=== PATIENT | female | born 1970 | race Caucasian/White ===

== ENCOUNTER 2018-01-21 08:39 | Emergency (ER) | payer BC, OTHER ==
[2018-01-21] MEDS ORDERED: SODIUM CHLORIDE 0.9% 1,000 ML IV ONE (09:02)
[2018-01-21 09:23] LABS: Anisocytosis Marked; Basophils # (A) 0.1 k/uL (0-0.2); Basophils % (A) 1 %; Eosinophils # (A) 0.2 k/uL (0-0.7); Eosinophils % (A) 2 %; HCT 24.1 % (34.0-46.0); Hypochromasia Marked; Lymphocytes # (A) 1.9 k/uL (1.0-4.8); Lymphocytes % (A) 20 %; MCH 18.6 pg (25.0-35.0); MCHC 26.8 g/dL (31.0-37.0); MCV 69.3 fL (80.0-100.0); Mean Platelet Volume 8.6; Microcytosis Marked; Monocytes # (A) 0.4 k/uL (0-1.0); Monocytes % (A) 4 %; Neutrophils # (A) 6.7 k/uL (1.3-7.7); Neutrophils % (A) 73 %; Platelet Count 230 k/uL (150-450); Poikilocytosis Moderate; RBC 3.48 m/uL (3.80-5.40); RDW 24.7 % (11.5-15.5); WBC 9.2 k/uL (3.8-10.6)
[2018-01-21 09:34] LABS: Anion Gap 13 mmol/L; Blood Urea Nitrogen 5 mg/dL (7-17); Calcium 8.9 mg/dL (8.4-10.2); Carbon Dioxide 24 mmol/L (22-30); Chloride 101 mmol/L (98-107); Glucose 97 mg/dL (74-99); Potassium 3.5 mmol/L (3.5-5.1); Sodium 138 mmol/L (137-145)
[2018-01-21 09:42] LABS: HGB 6.5 gm/dL (11.4-16.0)
[2018-01-21 10:01] LABS: Partial Thromboplastin Time 21.4 sec (22.0-30.0)
--- NOTE | 2018-01-21 10:28 | ED ---
Female Urogenital HPI - General Chief complaint: Vaginal Bleeding Stated complaint: Vaginal Bleeding-sent by Time Seen by Provider: 01/21/18 08:46 Source: patient, RN notes reviewed, old records reviewed Mode of arrival: ambulatory Limitations: no limitations - History of Present Illness Initial comments: 47-year-old female comes in today complaining of vaginal bleeding for the past week, she denies current bleeding. Was sent in by for a blood transfusion. Low hemoglobin of 6.4 yesterday. She did l receive a transfusion earlier this week when Hgb was 5.4. Patient reports she received TXA and 1 unit PRBC after passing large clots and the hgb of 5.4 at [facility] earlier in the week. She reports that her PCP rechecked her labs, and called her in for another transfusion. She reports feeling fatigue and short of breath occasionally. - Related Data Home Medications Medication Instructions Recorded Confirmed Ferrous Gluconate [Ferrous 324 mg PO Q48H 01/21/18 01/21/18 Gluconate] Omeprazole [PriLOSEC] 20 mg PO DAILY PRN 01/21/18 01/21/18 Allergies Allergy/AdvReac Type Severity Reaction Status Date / Time No Known Allergies Allergy Verified 01/21/18 09:13 Review of Systems ROS Statement: Those systems with pertinent positive or pertinent negative responses have been documented in the HPI. ROS Other: All systems not noted in ROS Statement are negative. Past Medical History Past Medical History: GERD/Reflux History of Any Multi-Drug Resistant Organisms: None Reported Past Surgical History: Tonsillectomy, Tubal Ligation Additional Past Surgical History / Comment(s): eye surgery, D&C Past Psychological History: No Psychological Hx Reported Smoking Status: Current every day smoker Past Alcohol Use History: Daily Past Drug Use History: None Reported General Exam - General Exam Comments Initial Comments: Pale, pleasant 47 year old female. no distress. Limitations: no limitations Head exam: Present: atraumatic Eye exam: Present: PERRL, EOMI, other (strabismus). Absent: normal appearance, scleral icterus, conjunctival injection, periorbital swelling ENT exam: Present: normal exam, mucous membranes moist Neck exam: Present: normal inspection. Absent: tenderness, meningismus, lymphadenopathy Respiratory exam: Present: normal lung sounds bilaterally. Absent: respiratory distress, wheezes, rales, rhonchi, stridor Cardiovascular Exam: Present: regular rate, normal rhythm, normal heart sounds. Absent: systolic murmur, diastolic murmur, rubs, gallop, clicks GI/Abdominal exam: Present: soft, normal bowel sounds. Absent: distended, tenderness, guarding, rebound, rigid Extremities exam: Present: normal inspection, full ROM, normal capillary refill. Absent: tenderness, pedal edema, joint swelling, calf tenderness Neurological exam: Present: alert, oriented X3, CN II-XII intact Psychiatric exam: Present: normal affect, normal mood Skin exam: Present: warm, dry, intact. Absent: normal color (pale), rash Course Vital Signs 01/21/18 01/21/18 01/21/18 08:42 11:43 11:46 Temperature 98.1 F 98.4 F 98.4 F Pulse Rate 78 78 78 Respiratory 20 18 20 Rate Blood Pressure 157/65 159/69 159/69 O2 Sat by Pulse 100 100 Oximetry 01/21/18 01/21/18 01/21/18 11:56 12:26 12:34 Temperature 98.4 F 98.4 F 98.4 F Pulse Rate 61 71 71 Respiratory 18 20 20 Rate Blood Pressure 152/58 150/64 150/64 O2 Sat by Pulse 99 99 Oximetry 01/21/18 13:47 Temperature 98.3 F Pulse Rate 68 Respiratory 20 Rate Blood Pressure 156/69 O2 Sat by Pulse 98 Oximetry - Reevaluation(s) Reevaluation #1: 01/21/18 12:05 Patient currently receiving transfusion. Medical Decision Making - Medical Decision Making 47-year-old female comes in today complaining of vaginal bleeding for the past week, she denies current bleeding. She did l receive a transfusion earlier this week when Hgb was 5.4. Patient reports she received TXA and 1 unit PRBC after passing large clots and the hgb of 5.4 at [facility] earlier in the week. She reports that her PCP rechecked her labs, and called her in for another transfusion. She reports occasional SOB, and fatigue. Hgb was 6.5 in ED. Given another unit of PRBC. Patient reports she feels better after receiving the blood. She also states that she has appt on Thursday with Dr. Kerr for bleeding, and PCP tomorrow. Discussed she needs to repeat CBC tmw. Patient and I discussed that without bleeding at this time, patient can hold off form hormones. Discussed if bleeding returns and is severe that they return to ED. She already had US at [facility], record reviewed and she has thickened endometrium. All questions answered and return parameters discussed. - Lab Data Result diagrams: 01/21/18 09:14 01/21/18 09:14 Lab Results 01/21/18 01/21/18 01/21/18 Range/Units 09:14 09:14 09:14 WBC 9.2 (3.8-10.6) k/uL RBC 3.48 L (3.80-5.40) m/uL Hgb 6.5 L* (11.4-16.0) gm/dL Hct 24.1 L (34.0-46.0) % MCV 69.3 L (80.0-100.0) fL MCH 18.6 L (25.0-35.0) pg MCHC 26.8 L (31.0-37.0) g/dL RDW 24.7 H (11.5-15.5) % Plt Count 230 (150-450) k/uL Neutrophils % 73 % Lymphocytes % 20 % Monocytes % 4 % Eosinophils % 2 % Basophils % 1 % Neutrophils # 6.7 (1.3-7.7) k/uL Lymphocytes # 1.9 (1.0-4.8) k/uL Monocytes # 0.4 (0-1.0) k/uL Eosinophils # 0.2 (0-0.7) k/uL Basophils # 0.1 (0-0.2) k/uL Hypochromasia Marked Poikilocytosis Moderate Anisocytosis Marked Microcytosis Marked PT 10.0 (9.0-12.0) sec INR 1.0 (<1.2) APTT 21.4 L (22.0-30.0) sec Sodium 138 (137-145) mmol/L Potassium 3.5 (3.5-5.1) mmol/L Chloride 101 (98-107) mmol/L Carbon Dioxide 24 (22-30) mmol/L Anion Gap 13 mmol/L BUN 5 L (7-17) mg/dL Creatinine 0.46 L (0.52-1.04) mg/dL Est GFR (CKD-EPI)AfAm >90 (>60 ml/min/1.73 sqM) Est GFR (CKD-EPI)NonAf >90 (>60 ml/min/1.73 sqM) Glucose 97 (74-99) mg/dL Calcium 8.9 (8.4-10.2) mg/dL Blood Type Blood Type Recheck Antibody Screen Crossmatch Spec Expiration Date 01/21/18 Range/Units 09:14 WBC (3.8-10.6) k/uL RBC (3.80-5.40) m/uL Hgb (11.4-16.0) gm/dL Hct (34.0-46.0) % MCV (80.0-100.0) fL MCH (25.0-35.0) pg MCHC (31.0-37.0) g/dL RDW (11.5-15.5) % Plt Count (150-450) k/uL Neutrophils % % Lymphocytes % % Monocytes % % Eosinophils % % Basophils % % Neutrophils # (1.3-7.7) k/uL Lymphocytes # (1.0-4.8) k/uL Monocytes # (0-1.0) k/uL Eosinophils # (0-0.7) k/uL Basophils # (0-0.2) k/uL Hypochromasia Poikilocytosis Anisocytosis Microcytosis PT (9.0-12.0) sec INR (<1.2) APTT (22.0-30.0) sec Sodium (137-145) mmol/L Potassium (3.5-5.1) mmol/L Chloride (98-107) mmol/L Carbon Dioxide (22-30) mmol/L Anion Gap mmol/L BUN (7-17) mg/dL Creatinine (0.52-1.04) mg/dL Est GFR (CKD-EPI)AfAm (>60 ml/min/1.73 sqM) Est GFR (CKD-EPI)NonAf (>60 ml/min/1.73 sqM) Glucose (74-99) mg/dL Calcium (8.4-10.2) mg/dL Blood Type O Positive Blood Type Recheck No Antibody Screen NEGATIVE Crossmatch See Detail Spec Expiration Date 01/24/2018 - 2314 Disposition Clinical Impression: Anemia, History of vaginal bleeding Disposition: HOME SELF-CARE Condition: Good Instructions: Anemia (ED) Additional Instructions: Patient advised to follow-up with primary care provider tomorrow repeat CBC. If there is heavy bleeding return to emergency department. Follow up with your EDGE BEADER on Thursday. Is patient prescribed a controlled substance at d/c from ED?: No If prescribed controlled substance>3 days was MAPS reviewed?: No When asked, does pt state using other controlled substances?: No Referrals: Quan Wu MD [Primary Care Provider] - 1-2 days
[2018-01-21 12:35] VITALS: RESP 20
[2018-01-21 13:48] VITALS: BP 156/69; PULSE 68; TEMP 98.3
== END 2018-01-21 14:09 | disposition home or self-care (01) ==
LOC: EC 08:39
DX: D64.9 Anemia, unspecified (principal); F17.200 Nicotine dependence, unspecified, uncomplicated; Z79.899 Other long term (current) drug therapy; Z87.42 Personal history of other diseases of the female genital tract
CPT/HCPCS: 36415; 86900; 86901; 80048; 85025; 85610; 85730; 86850; 86920; 99284; 96360; 96361 ×4; P9016

== ENCOUNTER 2018-01-28 09:11 | Emergency (ER) | payer BC, OTHER ==
--- NOTE | 2018-01-28 09:50 | ED ---
Recheck HPI - General Chief Complaint: Recheck/Abnormal Lab/Rx Stated Complaint: Needs blood transfusion Time Seen by Provider: 01/28/18 09:26 Source: patient, RN notes reviewed, old records reviewed Mode of arrival: ambulatory Limitations: no limitations - History of Present Illness Initial Comments: 47-year-old female with a history of heavy vaginal bleeding since January 17 presents to the emergency department today stating that she is a blood transfusion according to her PCP. She states that she had hemoglobin of 7.4 on Thursday when she was evaluated by PSYCH ASSISTANT. PSYCH ASSISTANT plans to do a D&C. She has had medical clearance by her primary care provider. The primary care provider will not approve for until she has a another blood transfusion. He would like her hemoglobin to be greater than 10. Patient has been to the emergency department 3 times for a blood transfusion including this time. Patient reports she feels tired and fatigued. Sometimes she is short of breath. She also states that yesterday when she saw her primary care provider the did an EKG and her having her sent for a stress test for further clearance. Patient reports that she's had no chest pain. Patient reports that she's had some minor spotting. No heavy vaginal bleeding and she had earlier this month. - Related Data Home Medications Medication Instructions Recorded Confirmed Ferrous Gluconate [Ferrous 324 mg PO DAILY 01/21/18 01/28/18 Gluconate] Omeprazole [PriLOSEC] 20 mg PO DAILY 01/21/18 01/28/18 amLODIPine [Norvasc] 5 mg PO DAILY 01/28/18 01/28/18 Allergies Allergy/AdvReac Type Severity Reaction Status Date / Time No Known Allergies Allergy Verified 01/28/18 09:40 Review of Systems ROS Statement: Those systems with pertinent positive or pertinent negative responses have been documented in the HPI. ROS Other: All systems not noted in ROS Statement are negative. Past Medical History Past Medical History: GERD/Reflux History of Any Multi-Drug Resistant Organisms: None Reported Past Surgical History: Tonsillectomy, Tubal Ligation Additional Past Surgical History / Comment(s): eye surgery, D&C Past Psychological History: No Psychological Hx Reported Smoking Status: Current every day smoker Past Alcohol Use History: Daily Past Drug Use History: None Reported General Exam - General Exam Comments Initial Comments: [id number] female. Alert and oriented. Pleasant. No acute distress. Limitations: no limitations General appearance: alert, in no apparent distress Head exam: Present: atraumatic, normocephalic, normal inspection Eye exam: Present: normal appearance, PERRL, EOMI. Absent: scleral icterus, conjunctival injection, periorbital swelling ENT exam: Present: normal exam, mucous membranes moist Neck exam: Present: normal inspection. Absent: tenderness, meningismus, lymphadenopathy Respiratory exam: Present: normal lung sounds bilaterally. Absent: respiratory distress, wheezes, rales, rhonchi, stridor Cardiovascular Exam: Present: regular rate GI/Abdominal exam: Present: soft, normal bowel sounds. Absent: distended, tenderness, guarding, rebound, rigid Extremities exam: Present: normal inspection, full ROM, normal capillary refill. Absent: tenderness, pedal edema, joint swelling, calf tenderness Back exam: Present: normal inspection Neurological exam: Present: alert, oriented X3, CN II-XII intact Course Vital Signs 01/28/18 01/28/18 01/28/18 09:18 12:19 13:33 Temperature 97.8 F 98.1 F Pulse Rate 77 61 60 Respiratory 20 17 17 Rate Blood Pressure 138/63 120/70 120/60 O2 Sat by Pulse 100 94 L 96 Oximetry 01/28/18 01/28/18 01/28/18 15:04 15:09 15:19 Temperature 967.0 F H 98.8 F 98.7 F Pulse Rate 68 59 L 57 L Respiratory 16 16 16 Rate Blood Pressure 133/61 121/72 142/66 O2 Sat by Pulse 99 100 Oximetry 01/28/18 01/28/18 15:49 17:08 Temperature 98.2 F 98.3 F Pulse Rate 57 L 62 Respiratory 17 17 Rate Blood Pressure 163/72 156/70 O2 Sat by Pulse 98 99 Oximetry - Reevaluation(s) Reevaluation #1: 01/28/18 11:34 Patient resting in bed. He complains of chest pain or any other symptoms. Waiting for transfusion. Reevaluation #2: 01/28/18 13:40 At this time patient's does receive blood. Currently pending for lab cross results. Medical Decision Making - Medical Decision Making 47-year-old female presents emergency department from her primary care's office for another blood transfusion. Hemoglobin is 8 this time. She will not be cleared for D&C surgery and she has another transfusion. I asked right she cannot use outpatient patient reports that her primary care provider Sharma come to the emergency department. At this time patient was given a transfusion. It took a long time as patient did have reactive antibodies and this blood draw. Patient received the transfusion. Stable for going home. Patient will follow up with her PCP and outpatient services that she has to to get further clearance for D&C. Patient reports she feels better after transfusion. - Lab Data Result diagrams: 01/28/18 09:58 Lab Results 01/28/18 01/28/18 01/28/18 Range/Units 09:58 09:58 09:58 WBC 8.9 (3.8-10.6) k/uL RBC 4.01 (3.80-5.40) m/uL Hgb 8.0 L D (11.4-16.0) gm/dL Hct 29.2 L (34.0-46.0) % MCV 72.8 L (80.0-100.0) fL MCH 19.9 L (25.0-35.0) pg MCHC 27.3 L (31.0-37.0) g/dL RDW 23.9 H (11.5-15.5) % Plt Count 377 (150-450) k/uL Neutrophils % (Manual) 77 % Lymphocytes % (Manual) 18 % Monocytes % (Manual) 4 % Eosinophils % (Manual) 1 % Neutrophils # (Manual) 6.85 (1.3-7.7) k/uL Lymphocytes # (Manual) 1.60 (1.0-4.8) k/uL Monocytes # (Manual) 0.36 (0-1.0) k/uL Eosinophils # (Manual) 0.09 (0-0.7) k/uL Nucleated RBCs 0 (0-0) /100 WBC Hypochromasia Marked Poikilocytosis Marked Anisocytosis Moderate Microcytosis Marked Target Cells Present Troponin I 0.013 (0.000-0.034) ng/mL Blood Type O Positive Blood Type Recheck No Antibody Screen POSITIVE Antibody Identification Clin Significant ABs Ruled Out Direct Antiglob Test Negative Crossmatch See Detail Spec Expiration Date 01/31/2018 - 0350 01/28/18 13:04 EKG performed at 1028 shows sinus rhythm with short DC. ST-T wave abnormality considering ischemia. Prolonged QT. Ventricular 65 bpm. DC interval is 102. QRS duration 106. QT QTc is 452/470. Disposition Clinical Impression: Anemia Disposition: HOME SELF-CARE Condition: Good Instructions: Anemia (ED) Additional Instructions: Patient advised follow-up with primary care provider and OBGYN in regards to completing clearance for D&C. Return to the emergency department if any alarming signs or symptoms occur. Is patient prescribed a controlled substance at d/c from ED?: No If prescribed controlled substance>3 days was MAPS reviewed?: No When asked, does pt state using other controlled substances?: No Referrals: Quan Wu MD [Primary Care Provider] - 1-2 days Time of Disposition: 16:25
[2018-01-28 10:23] LABS: Anisocytosis Moderate; HCT 29.2 % (34.0-46.0); Hypochromasia Marked; MCH 19.9 pg (25.0-35.0); MCHC 27.3 g/dL (31.0-37.0); MCV 72.8 fL (80.0-100.0); Microcytosis Marked; Platelet Count 377 k/uL (150-450); Poikilocytosis Marked; RBC 4.01 m/uL (3.80-5.40); RDW 23.9 % (11.5-15.5); WBC 8.9 k/uL (3.8-10.6)
[2018-01-28 10:48] LABS: Eosinophils # (M) 0.09 k/uL (0-0.7); Monocytes # (M) 0.36 k/uL (0-1.0); Neutrophils # (M) 6.85 k/uL (1.3-7.7); Neutrophils % (M) 77 %; Nucleated Red Blood Cells 0 /100 WBC (0-0); Target Cells Present; Total Cells Counted 100
[2018-01-28 16:01] VITALS: RESP 17
[2018-01-28 17:08] VITALS: BP 156/70; PULSE 62; TEMP 98.3
== END 2018-01-28 17:11 | disposition home or self-care (01) ==
LOC: EC 09:11
DX: D64.9 Anemia, unspecified (principal); R06.02 Shortness of breath; N93.9 Abnormal uterine and vaginal bleeding, unspecified; K21.9 Gastro-esophageal reflux disease without esophagitis; F17.200 Nicotine dependence, unspecified, uncomplicated; Z79.899 Other long term (current) drug therapy; Z98.51 Tubal ligation status
CPT/HCPCS: 36415; 93005; 86900; 86901; 84484; 85025; 86850; 86920; 86870; 86880; 99285; P9016

== ENCOUNTER → 2018-02-26 | Outpatient (CLI) | payer BC, OTHER ==
--- NOTE | 2018-02-26 18:21 | ECHOF ---
Referral Reason:R34.91 Abnormal EKG MEASUREMENTS -------- HEIGHT: 172.7 cm WEIGHT: 101.6 kg BP: 172/97 RVIDd: 3.8 cm (< 3.3) IVSd: 1.4 cm (0.6 - 1.1) LVIDd: 4.1 cm (3.9 - 5.3) LVPWd: 1.4 cm (0.6 - 1.1) IVSs: 1.8 cm LVIDs: 2.5 cm LVPWs: 1.6 cm LA Diam: 3.5 cm (2.7 - 3.8) LAESV Index (A-L): 24.62 ml/m Ao Diam: 3.2 cm (2.0 - 3.7) AV Cusp: 2.2 cm (1.5 - 2.6) MV EXCURSION: 17.354 mm (> 18.000) MV EF SLOPE: 75 mm/s (70 - 150) EPSS: 0.6 cm MV E Sree: 0.79 m/s MV DecT: 310 ms MV A Sree: 0.72 m/s MV E/A Ratio: 1.10 FINDINGS -------- Sinus rhythm. This was a technically good study. The left ventricular size is normal. There is moderate concentric left ventricular hypertrophy. O verall left ventricular systolic function is normal with, an EF between 55 - 60 %. The right ventricle is mild to moderately enlarged. Normal LA size by volume 22+/-6 ml/m2. The right atrium is normal in size. The aortic valve is trileaflet and appears structurally normal. There is trace to mild mitral regurgitation. The tricuspid valve appears structurally normal. There is no pulmonic regurgitation present. The aortic root size is normal. Normal inferior vena cava with normal inspiratory collapse consistent with estimated right atrial pre ssure of 5 mmHg. There is no pericardial effusion. CONCLUSIONS -------- 1. Sinus rhythm. 2. This was a technically good study. 3. The left ventricular size is normal. 4. There is moderate concentric left ventricular hypertrophy. 5. Overall left ventricular systolic function is normal with, an EF between 55 - 60 %. 6. The right ventricle is mild to moderately enlarged. 7. Normal LA size by volume 22+/-6 ml/m2. 8. The right atrium is normal in size. 9. The aortic valve is trileaflet and appears structurally normal. 10. There is trace to mild mitral regurgitation. 11. The tricuspid valve appears structurally normal. 12. There is no pulmonic regurgitation present. 13. The aortic root size is normal. 14. Normal inferior vena cava with normal inspiratory collapse consistent with estimated right atrial pressure of 5 mmHg. 15. There is no pericardial effusion. BRADLEY LINEBACKER CREWMEMBER: Petra Douglas RDCS
== END | disposition home or self-care (01) ==
LOC: RADNMMAIN 10:50
PROVIDERS: ATTEND Family Medicine
DX: I51.7 Cardiomegaly (principal); R94.31 Abnormal electrocardiogram [ECG] [EKG]
CPT/HCPCS: 93306

== ENCOUNTER → 2018-04-16 | Outpatient (CLI) | payer BC, OTHER ==
[2018-04-16 12:02] LABS: Anisocytosis Slight; Basophils # (A) 0.1 k/uL (0-0.2); Basophils % (A) 1 %; Eosinophils # (A) 0.1 k/uL (0-0.7); Eosinophils % (A) 1 %; HCT 36.5 % (34.0-46.0); HGB 10.8 gm/dL (11.4-16.0); Hypochromasia Marked; Lymphocytes # (A) 1.9 k/uL (1.0-4.8); Lymphocytes % (A) 20 %; MCH 22.8 pg (25.0-35.0); MCHC 29.6 g/dL (31.0-37.0); MCV 76.9 fL (80.0-100.0); Mean Platelet Volume 7.1; Microcytosis Slight; Monocytes # (A) 0.4 k/uL (0-1.0); Monocytes % (A) 4 %; Neutrophils # (A) 6.8 k/uL (1.3-7.7); Neutrophils % (A) 73 %; Platelet Count 339 k/uL (150-450); RBC 4.75 m/uL (3.80-5.40); RDW 17.8 % (11.5-15.5); WBC 9.4 k/uL (3.8-10.6)
== END | disposition home or self-care (01) ==
LOC: LABPAT 11:30
PROVIDERS: ATTEND Obstetrics & Gynecology
DX: Z01.812 Encounter for preprocedural laboratory examination (principal)
CPT/HCPCS: 36415; 85025

== ENCOUNTER 2018-04-27 06:05 | Day surgery (SDC) | payer BC, OTHER ==
[2018-04-19 12:55] VITALS: BMI 31.7
--- NOTE | 2018-04-26 18:52 | P.HPOB ---
History of Present Illness H&P Date: 04/26/18 Chief Complaint: Menorrhagia with regular cycle This is a 47-year-old female 1 para 1 who presents for dilation and curettage with hysteroscopy and NovaSure endometrial ablation secondary to menorrhagia with regular cycle. She has been having heavy menses with large clots and intermenstrual spotting for at least the last 6-7 months. Each time her bleeding will last 2-3 days. Her menses are lasting at least 5-6 days with heavy clots and some cramping. Occasionally she does get a period to where she bleeds through her clothes. Her bleeding was so heavy that she did end up in the emergency room and required 2 units of blood in January 2018. Her hemoglobin had gone down to 5.8 prior to the transfusion. She has had a tubal ligation for control. Her pelvic ultrasound showed a uterus measuring 9.5 x 5.1 x 5.9 cm and a 1.5 cm partially subserosal fibroid on the posterior uterine body. Endometrial thickness was 1.93 cm each ovary showed some dominant follicles there was also a complex cyst on the left ovary measuring 1.6 cm. Surgical clearance was received from her primary care physician Dr. Deras. Obstetrical history: . History of 1 vaginal delivery. Gynecologic history: No history of sexual transmitted diseases. She has had a tubal ligation. Social history: She is . She works as a teacher. Review of Systems Constitutional: Reports fatigue, Reports night sweats Eyes: denies blurred vision, denies pain Ears, nose, mouth and throat: Denies headache, Denies sore throat Cardiovascular: Reports palpitations Gastrointestinal: Denies abdominal pain, Denies diarrhea, Denies nausea, Denies vomiting Genitourinary: Reports dysmenorrhea, Reports menorrhagia Menstruation: Reports menses 1-7 days, Reports menses variable, Reports period heavy Musculoskeletal: Reports myalgias Integumentary: Denies pruritus, Denies rash Neurological: Denies numbness, Denies weakness Psychiatric: Reports anxiety, Reports irritability Past Medical History Past Medical History: GERD/Reflux, Hypertension Additional Past Medical History / Comment(s): HEAVY IRREGULAR MENSES-HAD BLOOD TRANSFUSION X3 (2) JANUARY- (1) FEBRUARY 2018 History of Any Multi-Drug Resistant Organisms: None Reported Past Surgical History: Tonsillectomy, Tubal Ligation Additional Past Surgical History / Comment(s): eye surgery CHILD, D&C Past Anesthesia/Blood Transfusion Reactions: Motion Sickness, Postoperative Nausea & Vomiting (PONV) Past Psychological History: Anxiety Smoking Status: Current every day smoker Past Alcohol Use History: Occasional Past Drug Use History: None Reported - Past Family History Mother Family Medical History: Cancer Medications and Allergies Home Medications Medication Instructions Recorded Confirmed Type Ferrous Gluconate 324 mg PO DAILY 01/21/18 04/19/18 History Omeprazole [PriLOSEC] 20 mg PO DAILY 01/21/18 04/19/18 History amLODIPine [Norvasc] 5 mg PO DAILY 01/28/18 04/19/18 History Allergies Allergy/AdvReac Type Severity Reaction Status Date / Time No Known Allergies Allergy Verified 04/19/18 12:49 Exam Osteopathic Statement: *. No significant issues noted on an osteopathic structural exam other than those noted in the History and Physical/Consult. HEENT: Within normal limits Heart: Regular rate and rhythm Lungs: Clear to auscultation bilaterally Abdomen: Soft, nontender Pelvic exam: Uterus is anteverted, nontender, with no adnexal masses or tenderness palpated. Extremities: Negative Homans. Assessment and Plan (1) Menorrhagia with regular cycle Status: Acute Code(s): N92.0 - EXCESSIVE AND FREQUENT MENSTRUATION WITH REGULAR CYCLE SNOMED Code(s): 232689040 Plan: Proceed with dilation and curettage with hysteroscopy and NovaSure endometrial ablation. I have discussed the risks, benefits, and alternative therapies for the above- mentioned procedure and for both sedation/anesthesia as well as necessary blood products administration, if indicated, as they pertain to this patient. The patient has indicated her understanding and acceptance of the risks and procedures discussed.
[~2018-04-27 06:05] MED LIST: DEXAMETHASONE SOD PHOSPHATE 10 MG/ML 1 ML VIAL IV ONE; LACTATED RINGERS 1,000 ML IV SCH; LIDOCAINE 1% 20 ML VIAL (10MG/ML) FOR IV START INTRADERMA PRN; MIDAZOLAM 2 MG/2 ML VIAL IV PRN; ONDANSETRON 4 MG/2 ML VIAL IVP ONE; Pre Op ABX Message 1 EACH MISC MISCELLANE ONE; fentaNYL (PF) 50 MCG/ML 2 ML AMP IV PRN
[2018-04-27] MEDS ORDERED: SCOPOLAMINE 1.5MG/72HR PATCH TRANSDERM ONE (07:09)
[2018-04-27] MEDS ORDERED: PROPOFOL 10 MG/ML 20 ML VIAL IV ONE (07:29)
[2018-04-27] MEDS ORDERED: fentaNYL (PF) 50 MCG/ML 2 ML AMP ONE (07:29)
[2018-04-27] MEDS ORDERED: MIDAZOLAM 2 MG/2 ML VIAL ONE (07:29)
[2018-04-27] MEDS ORDERED: diphenhydrAMINE 50 MG/ML 1 ML VIAL ONE (07:29)
[2018-04-27] MEDS ORDERED: KETOROLAC 30 MG/ML 1 ML VIAL ONE (07:29)
[2018-04-27] MEDS ORDERED: LIDOCAINE 1% INJ 10MG/ML (20 ML MDV) ONE (07:29)
--- NOTE | 2018-04-27 07:59 | P.OP ---
Date of Procedure: 04/27/18 Preoperative Diagnosis: Menorrhagia with regular cycle Postoperative Diagnosis: Same Procedure(s) Performed: Dilation and curettage with hysteroscopy and NovaSure endometrial ablation Anesthesia: other (LMA general) Surgeon: Kaylah Kerr Estimated Blood Loss (ml): 2 Pathology: other (Endometrial curettings) Condition: stable Disposition: same day Indications for Procedure: This is a 47-year-old female 1 para 1 who presents for dilation and curettage with hysteroscopy and NovaSure endometrial ablation secondary to menorrhagia with regular cycle. She has been having heavy menses with large clots and intermenstrual spotting for at least the last 6-7 months. Each time her bleeding will last 2-3 days. Her menses are lasting at least 5-6 days with heavy clots and some cramping. Occasionally she does get a period to where she bleeds through her clothes. Her bleeding was so heavy that she did end up in the emergency room and required 2 units of blood in January 2018. Her hemoglobin had gone down to 5.8 prior to the transfusion. She has had a tubal ligation for control. Her pelvic ultrasound showed a uterus measuring 9.5 x 5.1 x 5.9 cm and a 1.5 cm partially subserosal fibroid on the posterior uterine body. Endometrial thickness was 1.93 cm each ovary showed some dominant follicles there was also a complex cyst on the left ovary measuring 1.6 cm. Surgical clearance was received from her primary care physician Dr. Deras. Operative Findings: Uterus is anteverted and sounded to 11 cm. Cervix is sounded to 4 cm. Upon hysteroscopy, a very dyssynchronous thickened endometrium is noted. No specific polyps or fibroids were visualized. Neither tubal ostia was completely visualized. A large amount of endometrial curettings are obtained. Description of Procedure: The patient is taken to the operating room. She is placed in the dorsal lithotomy position after general anesthesia was given. She is prepped and draped in the normal sterile fashion. Bladder is drained with a catheter and then removed. Pelvic exam is performed under anesthesia. Uterus is found to be anteverted with no adnexal masses. She is placed in slight Trendelenburg position. A right angle retractor is used to visualize the cervix. The anterior lip of the cervix is grasped with a single-tooth tenaculum. Cervix is sounded to 4 cm. Uterus is sounded to 11 cm. Cervix is gently dilated with Cintron dilators until a hysteroscope could be passed. Hysteroscopy is performed using normal saline. The above noted findings are noted. Next a polyp forceps is introduced. A large amount of tissue was obtained. Next medium-sized size sharp curette was placed. A large amount of endometrial curettings were obtained. Next NovaSure array was inserted into the endometrial cavity. Length was set at 6.5 cm and width was determined to be 3.6 cm. Next cavity assessment was completed and passed on the first try. Next NovaSure array was fired at 129 W for 57 seconds. Next the array was removed, inspected and then discarded. Next the hysteroscope was reinserted. Uniform charring was noted. Pictures were taken. Hysteroscope was removed. Single-tooth tenaculum was removed from the anterior lip of the cervix. Minimal bleeding was noted. All other instruments removed from the vagina. Sponge counts were correct. Patient is taken to recovery room in stable condition.
[2018-04-27 08:15] VITALS: RESP 16; TEMP 97.2
[2018-04-27 09:08] VITALS: BP 166/88; PULSE 68
== END 2018-04-27 09:19 | disposition home or self-care (01) ==
LOC: OR 06:05
PROVIDERS: ATTEND Obstetrics & Gynecology
DX: N84.0 Polyp of corpus uteri (principal); D25.2 Subserosal leiomyoma of uterus; N83.02 Follicular cyst of left ovary; N83.01 Follicular cyst of right ovary; I10 Essential (primary) hypertension; F17.210 Nicotine dependence, cigarettes, uncomplicated; K21.9 Gastro-esophageal reflux disease without esophagitis; F41.9 Anxiety disorder, unspecified; Z79.899 Other long term (current) drug therapy
CPT/HCPCS: 81025; 58563; J2250; J1200; J1100; J2405; J2001; J3010; J1885; J2704; 88305

== ENCOUNTER → 2021-03-28 | Outpatient (CLI) | payer BC ==
--- NOTE | 2021-04-02 13:17 | MM ---
Reason for exam: screening (asymptomatic). Last mammogram was performed 5 years and 10 months ago. History: Patient is postmenopausal. Took hormonal contraceptives for 18 years. Physical Findings: A clinical breast exam by your physician is recommended on an annual basis and results should be correlated with mammographic findings. MG 3D Screening Mammo W/Cad Bilateral CC and MLO view(s) were taken. Prior study comparison: May 17, 2015, mammogram, performed at [facility]. There are scattered fibroglandular densities. No significant changes when compared with prior studies. ASSESSMENT: Benign, BI-RAD 2 RECOMMENDATION: Routine screening mammogram of both breasts in 1 year.
== END | disposition home or self-care (01) ==
LOC: RADMAMWWP 13:42
PROVIDERS: ATTEND Family Medicine
DX: Z12.31 Encounter for screening mammogram for malignant neoplasm of breast (principal); Z78.0 Asymptomatic menopausal state; Z79.3 Long term (current) use of hormonal contraceptives
CPT/HCPCS: 77063; 77067

== ENCOUNTER → 2022-09-29 | Outpatient (CLI) | payer BC ==
--- NOTE | 2022-09-30 20:45 | MM ---
Reason for Exam: Screening (asymptomatic). Last mammogram was performed 1 year(s) and 6 month(s) ago. Patient History: Menarche at age 12. First Full-Term at age 30. Late child-bearing (after 30). Postmenopausal. Patient used Hormonal Contraceptives for 18 years. Risk Values: Laura 5 year model risk: 1.5%. NCI Lifetime model risk: 11.8%. Prior Study Comparison: 05/17/2015 Screening Mammogram, [facility]. 03/28/2021 Bilateral Screening Mammogram, [facility]. Tissue Density: The breast tissue is almost entirely fat. Findings: Analyzed By CAD. There is no suspicious group of microcalcifications or new suspicious mass in either breast. Overall Assessment: Negative, BI-RAD 1 Management: Screening Mammogram of both breasts in 1 year. 1. Patient should continue monthly self breast exams. 2. A clinical breast exam by your physician is recommended on an annual basis. 3. This exam should not preclude additional follow-up of suspicious palpable abnormalities. Electronically signed and approved by: Steven Michelle M.D. Radiologist
== END | disposition home or self-care (01) ==
LOC: RADMAMWWP 15:47
PROVIDERS: ATTEND Family Medicine
DX: Z12.31 Encounter for screening mammogram for malignant neoplasm of breast (principal); Z78.0 Asymptomatic menopausal state
CPT/HCPCS: 77063; 77067

== ENCOUNTER → 2023-01-14 | Outpatient (CLI) | payer BC ==
[2023-01-15 02:58] LABS: African American GFR (CKD) 121.7 (60.0-200.0); Anion Gap 10.5 mmol/L (10.00-18.00); BUN/Creat Ratio 15.64 Ratio (12.00-20.00); Blood Urea Nitrogen 9.3 mg/dL (9.0-27.0); Calcium 9.2 mg/dL (8.7-10.3); Carbon Dioxide 27.8 mmol/L (20.0-27.5); Potassium 4.2 mmol/L (3.5-5.5)
== END | disposition home or self-care (01) ==
LOC: LABPAT 15:52
PROVIDERS: ATTEND Internal Medicine Cardiovascular Disease
DX: Z01.812 Encounter for preprocedural laboratory examination (principal); Z79.899 Other long term (current) drug therapy
CPT/HCPCS: 80048

== ENCOUNTER → 2023-12-31 | Outpatient (CLI) | payer BC ==
--- NOTE | 2024-01-01 13:12 | MM ---
Reason for Exam: Screening (asymptomatic). Last mammogram was performed 1 year(s) and 3 month(s) ago. Patient History: Menarche at age 12. First Full-Term at age 30. Late child-bearing (after 30). Postmenopausal. Patient used Hormonal Contraceptives for 18 years. Risk Values: Luara 5 year model risk: 1.5%. NCI Lifetime model risk: 11.6%. Prior Study Comparison: 05/17/2015 Screening Mammogram, [facility]. 03/28/2021 Bilateral Screening Mammogram, [facility]. 09/29/2022 Bilateral MG 3D screening mammo w/cad, [facility]. Tissue Density: The breasts are almost entirely fatty. Findings: Analyzed By CAD. Right breast: There is no suspicious group of microcalcifications or new suspicious mass. Left breast: There is no suspicious group of microcalcifications or new suspicious mass. Overall Assessment: Negative, BI-RAD 1 Management: Screening Mammogram of both breasts in [address] [facility] will attempt to contact patient to return for supplemental views and ultrasound if indicated. Patient should continue monthly self-breast exams. A clinical breast exam by your physician is recommended on an annual basis. This exam should not preclude additional follow-up of suspicious palpable abnormalities. Note on Laura scores and lifetime risk: 1. A Laura score greater than 3% is considered moderate risk. If this is the case, consider specialist referral to assess eligibility for a risk reducing agent. 2. If overall lifetime risk for the development of breast cancer is 20% or higher, the patient may qualify for future screening with alternating mammogram and breast MRI. Electronically signed and approved by: Paras Grider DO
== END | disposition home or self-care (01) ==
LOC: RADMAMWWP 16:18
PROVIDERS: ATTEND Family Medicine
DX: Z12.31 Encounter for screening mammogram for malignant neoplasm of breast (principal); Z78.0 Asymptomatic menopausal state
CPT/HCPCS: 77063; 77067

== ENCOUNTER 2024-07-06 06:15 | Day surgery (SDC) | payer BC ==
[2024-07-04 12:10] LABS: African American GFR (CKD) >90 (>60 ml/min/1.73 sqM); Anion Gap 6 mmol/L; Blood Urea Nitrogen 6 mg/dL (7-17); Carbon Dioxide 35 mmol/L (22-30); Chloride 99 mmol/L (98-107); Glucose 121 mg/dL (74-99); Non-African American GFR(CKD) >90 (>60 ml/min/1.73 sqM); Potassium 4.4 mmol/L (3.5-5.1); Sodium 140 mmol/L (137-145)
[~2024-07-06 06:15] MED LIST changes: -DEXAMETHASONE SOD PHOSPHATE 10 MG/ML 1 ML VIAL IV ONE; -LIDOCAINE 1% 20 ML VIAL (10MG/ML) FOR IV START INTRADERMA PRN; -MIDAZOLAM 2 MG/2 ML VIAL IV PRN; -ONDANSETRON 4 MG/2 ML VIAL IVP ONE; -Pre Op ABX Message 1 EACH MISC MISCELLANE ONE; -fentaNYL (PF) 50 MCG/ML 2 ML AMP IV PRN
[2024-07-06] MEDS: SODIUM CHLORIDE 0.9% 500 ML 500 ML IV SCH (07:00)
[2024-07-06] MEDS: ONDANSETRON 4 MG/2 ML VIAL IVP STA (07:03)
[2024-07-06 07:04] VITALS: RESP 16; TEMP 97
[2024-07-06] MEDS: IV FLUID CONTINUATION 500 ML IV ONE (07:05)
[2024-07-06] MEDS ORDERED: PROPOFOL 10 MG/ML 20 ML VIAL IV ONE (07:21)
[2024-07-06] MEDS ORDERED: LIDOCAINE 2% (PF) 20 MG/ML 5 ML VIAL ONE (07:21)
[2024-07-06] MEDS: BENZOCAINE SPRAY 1 EACH MM ONE (07:35)
[2024-07-06] MEDS ORDERED: SODIUM CHLORIDE 0.9% 1,000 ML IV SCH (08:00)
--- NOTE | 2024-07-06 08:38 | ECHOT ---
TRANSESOPHAGEAL ECHOCARDIOGRAM INDICATION: Persistent atrial fibrillation. PROCEDURE: KIESHA, indication to rule out intracardiac thrombus prior to cardioversion. PROCEDURE NOTE: After obtaining informed consent, transesophageal echocardiogram was performed in left lateral position using an Omniplane probe. Local and IV sedation were obtained by the bobbin cleaner. This was a technically suboptimal study due to a faulty equipment with difficult to obtain images. However, we were able to obtain the information that we needed for this procedure. FINDINGS: 1. There is no intracardiac thrombus within the left atrial appendage, left atrium, right atrium, right ventricle, or left ventricle. 2. Left atrium appears enlarged. 3. Right atrium, right ventricle seen within normal limits. 4. Left ventricle has normal size and systolic function. 5. There is mild mitral regurgitation. Aortic valve is free of stenosis or regurgitation. Aortic root appears normal. We could not obtain agitated saline contrast study or interrogate the tricuspid valve. CONCLUSIONS: No intracardiac thrombus. PLAN: We will proceed with cardioversion. MMODL / IJN: [id number] /
--- NOTE | 2024-07-06 08:47 | PCN ---
PROCEDURE NOTE CARDIOVERSION NOTE INDICATION: Persistent atrial fibrillation. After obtaining informed consent, cardioversion was performed using 150 and subsequently 200 joule synchronized DC current. The patient converted to sinus rhythm following a single shock. The patient is anticoagulated with Eliquis and an intracardiac thrombus was ruled out with the KIESHA. Patient will continue the Eliquis and I am going to stop the Cardizem that she is on. MMOSWALDO / SOFIAN: [id number] /
[2024-07-06 09:24] VITALS: BP 121/80; PULSE 49
== END 2024-07-06 09:38 | disposition home or self-care (01) ==
LOC: OR 06:15
PROVIDERS: ATTEND Internal Medicine Cardiovascular Disease
DX: I48.19 Other persistent atrial fibrillation (principal); I10 Essential (primary) hypertension; E78.5 Hyperlipidemia, unspecified; F32.A Depression, unspecified; F41.9 Anxiety disorder, unspecified; K21.9 Gastro-esophageal reflux disease without esophagitis; Z79.899 Other long term (current) drug therapy
CPT/HCPCS: 93312; 93320; 93325; 92960; 80048; 84443; J2405; J2704; J2003

== ENCOUNTER 2024-07-08 13:27 | Inpatient (IN) | payer BC ==
--- NOTE | 2024-07-08 14:18 | XR ---
EXAMINATION TYPE: XR chest 2V DATE OF EXAM: 07/08/2024 COMPARISON: NONE HISTORY: Dysrhythmia TECHNIQUE: Frontal and lateral views of the chest are obtained. FINDINGS: There is no focal air space opacity, pleural effusion, or pneumothorax seen. The cardiac silhouette size is within normal limits. The osseous structures are intact. IMPRESSION: No acute cardiopulmonary process. [facility], Workstation: [facility], 07/08/2024 2:16 PM
--- NOTE | 2024-07-08 14:19 | ED ---
General Adult HPI - General Chief complaint: Arrhythmia/Palpitations Stated complaint: Heart palpations Time Seen by Provider: 07/08/24 13:40 Source: patient, RN notes reviewed, old records reviewed Mode of arrival: ambulatory Limitations: no limitations - History of Present Illness Initial comments: This is a 53-year-old female who presents to the emergency department in atrial fibrillation. Has been cardioverted a while ago and again 2 days ago. Patient states at that time she was in normal sinus rhythm however she flipped back into atrial fibrillation and was at the cheese sprayer office today and her heart rate was about 170 beats a minute and they wanted the patient to come in to get IV amiodarone. Patient states she feels a little lightheaded occasionally but has no shortness of breath no chest pain no palpitations. Patient states she feels that her baseline. Patient [place] any recent fever chills or cough or patient has abdominal pain patient has nausea vomiting diarrhea. Patient is on Eliquis - Related Data Home Medications Medication Instructions Recorded Confirmed Omeprazole [PriLOSEC] 20 mg PO QAM 01/21/18 07/06/24 Apixaban [Eliquis] 5 mg PO BID 10/02/22 07/06/24 Cyanocobalamin (Vitamin B-12) 1,000 mcg PO QAM 10/02/22 07/06/24 [Vitamin B-12] Rosuvastatin [Crestor] 10 mg PO DAILY 10/02/22 07/06/24 Sertraline [Zoloft] 100 mg PO HS 10/02/22 07/06/24 amLODIPine BESYLATE 5 mg PO BID 10/24/22 07/06/24 Folic Acid 0.4 mg PO DAILY 07/01/24 07/06/24 Vit B1(Unk) 1 tab PO DAILY 07/01/24 07/06/24 Previous Rx's Medication Instructions Recorded Losartan [Cozaar] 25 mg PO DAILY #90 tab 07/06/24 Allergies Allergy/AdvReac Type Severity Reaction Status Date / Time No Known Allergies Allergy Verified 07/08/24 13:29 Review of Systems ROS Statement: Those systems with pertinent positive or pertinent negative responses have been documented in the HPI. ROS Other: All systems not noted in ROS Statement are negative. 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 States she herself just has nausea & vomiting but not is she has a scopalamine patch. Past Psychological History: Anxiety, Depression Smoking Status: Former smoker Past Alcohol Use History: Occasional Past Drug Use History: Marijuana - Past Family History Mother Family Medical History: Cancer Father Family Medical History: Cancer Additional Family Medical History / Comment(s): Lung cancer/smoker/chemical exposure. General Exam - General Exam Comments Initial Comments: GENERAL: Patient is well-developed and well-nourished. Patient is nontoxic and well- hydrated and is in no acute distress. ENT: Neck is soft and supple. No significant lymphadenopathy is noted. Oropharynx is clear. Moist mucous membranes. Neck has full range of motion without eliciting any pain. EYES: The sclera were anicteric and conjunctiva were pink and moist. Extraocular movements were intact and pupils were equal round and reactive to light. Eyelids were unremarkable. PULMONARY: Unlabored respirations. Good breath sounds bilaterally. No audible rales rhonchi or wheezing was noted. CARDIOVASCULAR: Patient has a heart rate of 180 beats a minute and it is irregular ABDOMEN: Soft and nontender with normal bowel sounds. SKIN: Skin is clear with no lesions or rashes and otherwise unremarkable. NEUROLOGIC: Patient is alert and oriented x3. Cranial nerves II through XII are grossly intact. Motor and sensory are also intact. Normal speech, volume and content. Symmetrical smile. MUSCULOSKELETAL: Normal extremities with adequate strength and full range of motion. No lower extremity swelling or edema. No calf tenderness. LYMPHATICS: No significant lymphadenopathy is noted PSYCHIATRIC: Normal psychiatric evaluation. Limitations: no limitations Course Vital Signs 07/08/24 07/08/24 07/08/24 13:29 13:50 14:47 Temperature 99.0 F Pulse Rate 75 137 H Pulse Rate [ 174 H Medical Sales ] Respiratory 20 20 Rate Blood Pressure 141/91 98/55 O2 Sat by Pulse 98 98 Oximetry 07/08/24 15:32 Temperature Pulse Rate 122 H Pulse Rate [ Medical Sales ] Respiratory 20 Rate Blood Pressure 149/97 O2 Sat by Pulse 97 Oximetry Medical Decision Making - Medical Decision Making EKG is interpreted by myself. EKG shows atrial fibrillation at rapid ventricular response at a rate of 174 bpm QRS is 82 QT interval is 233 QTc is 326. Significant ST segment depression in precordial leads V3 through V6 Was pt. sent in by a medical professional or institution (, PA, MAKEUP ARTISTRY INSTRUCTOR, urgent care, hospital, or fdc...) When possible be specific @ -Dr. Elizabeth sent the patient in. Did you speak to anyone other than the patient for history (EMS, parent, family, police, friend...)? What history was obtained from this source @ -Prior to the patient's arrival Dr. Elizabeth called and gave the history of what he was sending the patient in. Did you review nursing and triage notes (agree or disagree)? Why? @ -I reviewed and agree with nursing and triage notes Were old charts reviewed (outside hosp., previous admission, EMS record, old EKG, old radiological studies, urgent care reports/EKG's, fdc records)? Report findings @ -No old charts were reviewed Differential Diagnosis? @ -Differential Palpitations Ventricular arrhythmias, atrial arrhythmias, myocardial infarction, anemia, thyrotoxicosis, electrolyte imbalance, hypokalemia, pulmonary embolism, pulmonary disease, drugs, alcohol, anxiety, stress.... This is not meant to be an all-inclusive list. EKG interpreted by me (3pts min.). @ -As above X-rays interpreted by me (1pt min.). @ -Chest x-ray shows no acute CT interpreted by me (1pt min.). @ -None done U/S interpreted by me (1pt. min.). @ -None done What testing was considered but not performed or refused? (CT, X-rays, U/S, labs)? Why? @ -None What meds were considered but not given or refused? Why? @ -None Did you discuss the management of the patient with other professionals (professionals i.e. , PA, MAKEUP ARTISTRY INSTRUCTOR, lab, RT, psych nurse, social media senior associate, ball mill operator, teacher, president and chief operating officer, embedded case manager)? Give summary @ -I spoke with Dr. Buck and he wanted the patient admitted admit the patient consulted cardiology Was smoking cessation discussed for >3mins.? @ -No Was critical care preformed (if so, how long)? @ -35 minutes Were there social determinants of health that impacted care today? How? (Homelessness, low income, unemployed, alcoholism, drug addiction, transportation, low edu. Level, literacy, decrease access to med. care, usp, rehab)? @ -No Was there de-escalation of care discussed even if they declined (Discuss DNR or withdrawal of care, Hospice)? DNR status @ -No What co-morbidities impacted this encounter? (DM, HTN, Smoking, COPD, CAD, Cancer, CVA, ARF, Chemo, Hep., AIDS, mental health diagnosis, sleep apnea, morbid obesity)? @ -None Was patient admitted / discharged? Hospital course, mention meds given and route, prescriptions, significant lab abnormalities, going to OR and other pertinent info. @ -Patient was started on amiodarone drip after she got a bolus. Patient's wheezing was significantly low at 0.9 so 2 g of IV magnesium sulfate were given Undiagnosed new problem with uncertain prognosis? @ -No Drug Therapy requiring intensive monitoring for toxicity (Heparin, Nitro, Insulin, Cardizem)? @ -No Were any procedures done? @ -No Diagnosis/symptom? @ -A-fib with rapid ventricular response Acute, or Chronic, or Acute on Chronic? @ -Acute Uncomplicated (without systemic symptoms) or Complicated (systemic symptoms)? @ -Complicated Side effects of treatment? @ -No Exacerbation, Progression, or Severe Exacerbation? @ -No Poses a threat to life or bodily function? How? (Chest pain, [place], [place], pneumonia, PE, COPD, DKA, ARF, appy, cholecystitis, CVA, Diverticulitis, Homicidal, Suicidal, threat to staff... and all critical care pts) @ -Yes this could lead to poor perfusion and endorgan dysfunction Diagnosis/symptom? @ -Hypomagnesemia Acute, or Chronic, or Acute on Chronic? @ -Acute Uncomplicated (without systemic symptoms) or Complicated (systemic symptoms)? @ -Complicated Side effects of treatment? @ -None Exacerbation, Progression, or Severe Exacerbation] @ -No Poses a threat to life or bodily function? @ -No - Lab Data Result diagrams: 07/08/24 14:10 07/08/24 14:10 Lab Results 07/08/24 07/08/24 07/08/24 Range/Units 14:10 14:10 14:10 WBC 14.2 H (3.8-10.6) k/uL RBC 5.11 (3.80-5.40) m/uL Hgb 17.1 H (11.4-16.0) gm/dL Hct 51.3 H (34.0-46.0) % MCV 100.4 H (80.0-100.0) fL MCH 33.4 (25.0-35.0) pg MCHC 33.3 (31.0-37.0) g/dL RDW 12.3 (11.5-15.5) % Plt Count 286 (150-450) k/uL MPV 8.4 Neutrophils % 78 % Lymphocytes % 16 % Monocytes % 3 % Eosinophils % 1 % Basophils % 1 % Neutrophils # 11.1 H (1.3-7.7) k/uL Lymphocytes # 2.3 (1.0-4.8) k/uL Monocytes # 0.4 (0-1.0) k/uL Eosinophils # 0.2 (0-0.7) k/uL Basophils # 0.1 (0-0.2) k/uL PT 12.0 (10.0-12.5) sec INR 1.1 (<1.2) APTT 27.8 (22.0-30.0) sec Sodium 134 L (137-145) mmol/L Potassium 3.5 (3.5-5.1) mmol/L Chloride 97 L (98-107) mmol/L Carbon Dioxide 25 (22-30) mmol/L Anion Gap 12 mmol/L BUN 8 (7-17) mg/dL Creatinine 0.75 (0.52-1.04) mg/dL Est GFR (CKD-EPI)AfAm >90 (>60 ml/min/1.73 sqM) Est GFR (CKD-EPI)NonAf >90 (>60 ml/min/1.73 sqM) Glucose 101 H (74-99) mg/dL Calcium 9.3 (8.4-10.2) mg/dL Magnesium 0.9 L* (1.6-2.3) mg/dL Total Bilirubin 1.2 (0.2-1.3) mg/dL AST 38 H (14-36) U/L ALT 15 (4-34) U/L Alkaline Phosphatase 128 H (38-126) U/L Troponin I (0.000-0.034) ng/mL Total Protein 7.7 (6.3-8.2) g/dL Albumin 4.5 (3.5-5.0) g/dL 07/08/24 Range/Units 14:10 WBC (3.8-10.6) k/uL RBC (3.80-5.40) m/uL Hgb (11.4-16.0) gm/dL Hct (34.0-46.0) % MCV (80.0-100.0) fL MCH (25.0-35.0) pg MCHC (31.0-37.0) g/dL RDW (11.5-15.5) % Plt Count (150-450) k/uL MPV Neutrophils % % Lymphocytes % % Monocytes % % Eosinophils % % Basophils % % Neutrophils # (1.3-7.7) k/uL Lymphocytes # (1.0-4.8) k/uL Monocytes # (0-1.0) k/uL Eosinophils # (0-0.7) k/uL Basophils # (0-0.2) k/uL PT (10.0-12.5) sec INR (<1.2) APTT (22.0-30.0) sec Sodium (137-145) mmol/L Potassium (3.5-5.1) mmol/L Chloride (98-107) mmol/L Carbon Dioxide (22-30) mmol/L Anion Gap mmol/L BUN (7-17) mg/dL Creatinine (0.52-1.04) mg/dL Est GFR (CKD-EPI)AfAm (>60 ml/min/1.73 sqM) Est GFR (CKD-EPI)NonAf (>60 ml/min/1.73 sqM) Glucose (74-99) mg/dL Calcium (8.4-10.2) mg/dL Magnesium (1.6-2.3) mg/dL Total Bilirubin (0.2-1.3) mg/dL AST (14-36) U/L ALT (4-34) U/L Alkaline Phosphatase (38-126) U/L Troponin I 0.018 (0.000-0.034) ng/mL Total Protein (6.3-8.2) g/dL Albumin (3.5-5.0) g/dL Disposition Clinical Impression: Atrial fibrillation with RVR, Hypomagnesemia Disposition: ADMITTED IP TO THIS HOSP Referrals: Gene Love MD [Primary Care Provider] - 1-2 days Time of Disposition: 16:02
[2024-07-08] MEDS: DEXTROSE 5% IN WATER 100 ML with AMIODARONE 150 MG IV ONE (14:25)
[2024-07-08 14:28] LABS: Basophils # (A) 0.1 k/uL (0-0.2); Basophils % (A) 1 %; Eosinophils # (A) 0.2 k/uL (0-0.7); Eosinophils % (A) 1 %; HCT 51.3 % (34.0-46.0); HGB 17.1 gm/dL (11.4-16.0); Lymphocytes # (A) 2.3 k/uL (1.0-4.8); Lymphocytes % (A) 16 %; MCH 33.4 pg (25.0-35.0); MCHC 33.3 g/dL (31.0-37.0); MCV 100.4 fL (80.0-100.0); Mean Platelet Volume 8.4; Monocytes # (A) 0.4 k/uL (0-1.0); Monocytes % (A) 3 %; Neutrophils # (A) 11.1 k/uL (1.3-7.7); Neutrophils % (A) 78 %; Platelet Count 286 k/uL (150-450); RBC 5.11 m/uL (3.80-5.40); RDW 12.3 % (11.5-15.5); WBC 14.2 k/uL (3.8-10.6)
[2024-07-08] MEDS: SODIUM CHLORIDE 0.9% 1,000 ML IV STA (14:28)
[2024-07-08 14:40] LABS: INR 1.1 (<1.2); Partial Thromboplastin Time 27.8 sec (22.0-30.0)
[2024-07-08] MEDS: AMIODARONE 360 MG in DEXTROSE 5% IN WATER 200 ML IV ONE (14:40)
[2024-07-08 14:46] LABS: ALT 15 U/L (4-34); AST 38 U/L (14-36); African American GFR (CKD) >90 (>60 ml/min/1.73 sqM); Albumin 4.5 g/dL (3.5-5.0); Alkaline Phosphatase 128 U/L (38-126); Anion Gap 12 mmol/L; Blood Urea Nitrogen 8 mg/dL (7-17); Calcium 9.3 mg/dL (8.4-10.2); Carbon Dioxide 25 mmol/L (22-30); Chloride 97 mmol/L (98-107); Glucose 101 mg/dL (74-99); Non-African American GFR(CKD) >90 (>60 ml/min/1.73 sqM); Potassium 3.5 mmol/L (3.5-5.1); Sodium 134 mmol/L (137-145); Total Bilirubin 1.2 mg/dL (0.2-1.3); Total Protein 7.7 g/dL (6.3-8.2)
[2024-07-08 14:53] LABS: Magnesium 0.9 mg/dL (1.6-2.3)
[2024-07-08] MEDS ORDERED: NITROGLYCERIN SL TABS 0.4 MG TAB SUBLINGUAL PRN ×2 (14:59→16:02)
[2024-07-08] MEDS: MAGNESIUM SULFATE-D5W PMX 1 GM in DEXTROSE/WATER 1 100ML.BAG IVPB SCH ×2 (15:09→18:26)
--- NOTE | 2024-07-08 16:22 | P.HPIM ---
History of Present Illness H&P Date: 07/08/24 Patient is a 53-year-old female with history of atrial fibrillation with recent cardioversion, hypertension, dyslipidemia, depression presenting from cardiology office with elevated heart rate. She claims that she was feeling slightly lightheaded this morning. Normally with atrial fibrillation with RVR, she has no symptoms at all. She did go to her cardiology office this morning and was noted to have elevated heart rate and was subsequently sent to the ER. She denies any chest pain, palpitations, nausea, vomiting, urinary or bowel complaints. She denies any recent illness or travel history. In the ED, temperature was 99, pulse 174, respiratory rate 20, blood pressure 141/91, saturating at 98% on room air. Chest x-ray independently interpreted, does not show any acute opacities. EKG independently interpreted, shows atrial fibrillation with RVR, and inferior lateral ST depression. WBC 14.2, hemoglobin 17.1, sodium 134, bicarb 25, creatinine 0.75, magnesium 0.9, potassium 3.5, troponin 0.018. Patient started on amiodarone drip per cardiology, also given IV magnesium. Patient being admitted for A-fib with RVR. Pertinent positives and negatives as discussed in HPI, a complete review of systems was performed and all other systems are negative. Patient seen and examined at bedside. Vital signs reviewed General: nontoxic, no distress, appears at stated age Derm: warm, dry Head: atraumatic, normocephalic, symmetric Eyes: EOMI, no lid lag, anicteric sclera, pupils equal round reactive to light ENT: Nose and ears atraumatic Neck: No thyromegaly, supple Mouth: no lip lesion, mucus membranes moist Cardiovascular: S1S2 tachycardic, irregular, no murmur, no edema Lungs: clear to auscultation bilateral, no rhonchi, no rales, no wheeze, no accessory muscle use Abdominal: soft, nontender to palpation, no guarding, no appreciable organomegaly Ext: no gross muscle atrophy, muscle strength muscle strength 5 out of 5 in all 4 extremities, no contractures Neuro: CN II-XII grossly intact Psych: Alert, oriented, appropriate affect Assessment/Plan: Active: Atrial fibrillation with RVR Hypomagnesemia Leukocytosis, likely reactive -Continue amiodarone drip, monitor heart rate and blood pressure -Continue telemetry monitoring -Getting 2 g of IV magnesium sulfate in the ED -Order another 2 g of IV magnesium sulfate -Continue Eliquis 5 twice daily History of hypertension -Hold current antihypertensives as patient is slightly hypotensive Dyslipidemia -Continue rosuvastatin 10 mg daily Depression -Continue sertraline 100 mg nightly The patient is admitted with an anticipated greater than 2 midnight stay as inpatient status for evaluation of atrial fibrillation with RVR. Surrogate decision-maker: Daughter CODE STATUS: Full code DVT prophylaxis: Eliquis Anticipated discharge date: Pending clinical course Anticipated discharge place: Pending clinical course A total of 55 minutes was spent on the care of this complex patient more than 50% of the time was spent in counseling and care coordination. 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 States she herself just has nausea & vomiting but not is she has a scopalamine patch. Past Psychological History: Anxiety, Depression Smoking Status: Former smoker Past Alcohol Use History: Occasional Past Drug Use History: Marijuana - Past Family History Mother Family Medical History: Cancer Father Family Medical History: Cancer Additional Family Medical History / Comment(s): Lung cancer/smoker/chemical exposure. Medications and Allergies Home Medications Medication Instructions Recorded Confirmed Type Omeprazole [PriLOSEC] 20 mg PO QAM 01/21/18 07/06/24 History Apixaban [Eliquis] 5 mg PO BID 10/02/22 07/06/24 History Cyanocobalamin (Vitamin B-12) 1,000 mcg PO QAM 10/02/22 07/06/24 History [Vitamin B-12] Rosuvastatin [Crestor] 10 mg PO DAILY 10/02/22 07/06/24 History Sertraline [Zoloft] 100 mg PO HS 10/02/22 07/06/24 History amLODIPine BESYLATE 5 mg PO BID 10/24/22 07/06/24 History Folic Acid 0.4 mg PO DAILY 07/01/24 07/06/24 History Vit B1(Unk) 1 tab PO DAILY 07/01/24 07/06/24 History Losartan [Cozaar] 25 mg PO DAILY #90 tab 07/06/24 Rx Allergies Allergy/AdvReac Type Severity Reaction Status Date / Time No Known Allergies Allergy Verified 07/08/24 13:29 Physical Exam Vitals: Vital Signs Temp Pulse Pulse Resp BP Pulse Ox 07/08/24 14:47 137 H 20 98/55 98 07/08/24 13:50 174 H 07/08/24 13:29 99.0 F 75 20 141/91 98 Intake and Output 07/08/24 07/08/24 07/08/24 06:59 14:59 22:59 Other: Weight 94.347 kg Results CBC & Chem 7: 07/08/24 14:10 07/08/24 14:10 Labs: Abnormal Lab Results - Last 24 Hours (Table) 07/08/24 07/08/24 Range/Units 14:10 14:10 WBC 14.2 H (3.8-10.6) k/uL Hgb 17.1 H (11.4-16.0) gm/dL Hct 51.3 H (34.0-46.0) % MCV 100.4 H (80.0-100.0) fL Neutrophils # 11.1 H (1.3-7.7) k/uL Sodium 134 L (137-145) mmol/L Chloride 97 L (98-107) mmol/L Glucose 101 H (74-99) mg/dL Magnesium 0.9 L* (1.6-2.3) mg/dL AST 38 H (14-36) U/L Alkaline Phosphatase 128 H (38-126) U/L
[2024-07-08] MEDS ORDERED: NITROGLYCERIN OINT 1 INCH/GM PACKET TOPICAL SCH (18:00)
[2024-07-08] MEDS: AMIODARONE 450 MG in DEXTROSE 5% IN WATER 250 ML IV SCH (20:04)
[2024-07-08] MEDS: SERTRALINE 100 MG TAB PO SCH (20:40)
[2024-07-08] MEDS: APIXABAN 5 MG TAB PO SCH (20:40)
[2024-07-09 07:03] LABS: Basophils # (A) 0.1 k/uL (0-0.2); Basophils % (A) 1 %; Eosinophils # (A) 0.2 k/uL (0-0.7); Eosinophils % (A) 2 %; HGB 14.8 gm/dL (11.4-16.0); Lymphocytes % (A) 25 %; MCH 32.3 pg (25.0-35.0); MCHC 31.4 g/dL (31.0-37.0); MCV 102.9 fL (80.0-100.0); Macrocytosis Slight; Mean Platelet Volume 7.9; Monocytes # (A) 0.3 k/uL (0-1.0); Monocytes % (A) 4 %; Neutrophils # (A) 5.4 k/uL (1.3-7.7); Neutrophils % (A) 67 %; Platelet Count 239 k/uL (150-450); RBC 4.57 m/uL (3.80-5.40); RDW 12.4 % (11.5-15.5); WBC 8.1 k/uL (3.8-10.6)
[2024-07-09 07:58] LABS: African American GFR (CKD) >90 (>60 ml/min/1.73 sqM); Anion Gap 7 mmol/L; Blood Urea Nitrogen 7 mg/dL (7-17); Carbon Dioxide 31 mmol/L (22-30); Chloride 102 mmol/L (98-107); Glucose 103 mg/dL (74-99); Magnesium 2.5 mg/dL (1.6-2.3); Non-African American GFR(CKD) >90 (>60 ml/min/1.73 sqM); Potassium 3.5 mmol/L (3.5-5.1); Sodium 140 mmol/L (137-145)
[2024-07-09] MEDS ORDERED: ASPIRIN 325 MG TAB PO SCH ×2 (09:00)
[2024-07-09] MEDS: ASPIRIN 81 MG PO SCH (09:07)
[2024-07-09] MEDS: ATORVASTATIN 20 MG TAB PO SCH (09:07)
[2024-07-09] MEDS: METOPROLOL TARTRATE 50 MG TAB PO SCH (09:36)
[2024-07-09] MEDS: DRONEDARONE 400 MG TAB PO SCH (09:46)
--- NOTE | 2024-07-09 13:48 | P.CRDCN ---
History of Present Illness Consult date: 07/09/24 Consult reason: chest pain History of present illness: The patient is a 53-year-old female who follows in the office with Dr. Cao. She was sent to the emergency room by Dr. Elizabeth for A-fib with RVR. She underwent KIESHA and cardioversion last Thursday. She has preserved LV function with left atrial enlargement. DIAGNOSTICS: EKG shows atrial fibrillation with RVR Chest X-ray shows no acute cardiomyopathy Lab data: WBC 8.1, hemoglobin 14.8, hematocrit 47.0, platelet 239, sodium 140, potassium 3.5, BUN 7, creatinine 0.65, magnesium 0.9 which was supplemented and redraw 2.5. Troponin 0.01 x 3, AST 38, ALT 15 REVIEW OF SYSTEMS: No fever or chills. No cough or expectoration. No diaphoresis. Patient denies headache, dizziness, blurred vision, double vision. Patient denies any stomach discomfort. No nausea, vomiting. No hematochezia. No hematemesis. Denies any black stools or blood in his stools. Denies dysuria or hematuria. No muscle weakness or numbness. Denies chest pain or chest pressure. No shortness of breath. No palpitations PHYSICAL EXAMINATION: This is a 53-year-old obese female in no apparent distress at the time of my examination. HEENT: Head is atraumatic, normocephalic. Pupils are equal, round. There is no jugular venous distention. No carotid bruit is heard. CHEST EXAMINATION: Lungs are clear to auscultation. No chest wall tenderness is noted on palpation or with deep breathing. HEART EXAMINATION: Irregular rate and rhythm. S1, S2 heard. No murmurs, gallops or rub. ABDOMEN: Soft, nontender. Bowel sounds are heard. No organomegaly noted. EXTREMITIES: 2+ peripheral pulses with no evidence of peripheral edema and no calf tenderness noted. NEUROLOGIC EXAMINATION: Patient is awake, alert and oriented x3. FINAL ASSESSMENT AND PLAN: A-fib with RVR Failed previous cardioversions x 2 Hypomagnesia Hypertension Dyslipidemia Regular alcohol consumption PLAN: Discontinue amiodarone drip Start dronedarone 400 mg twice daily Start metoprolol 100 mg twice daily Consider resuming losartan tomorrow Further recommendations to be based on clinical course I am dictating on behalf of Dr Israel Mera's history/physical and assessment/plan. 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 States she herself just has nausea & vomiting but not is she has a scopalamine patch. Past Psychological History: Anxiety, Depression Additional Psychological History / Comment(s): Pt resides with [facility]. Smoking Status: Former smoker Past Alcohol Use History: Occasional Additional Past Alcohol Use History / Comment(s): pt states she drinks 4 drinks at least 4 times a week. Drink of choice is Rum. Pt started smoking in 1985 and quit 01/03/22. Pt drinks 3-4 mixed drinks a day. Past Drug Use History: Marijuana Additional Drug Use History / Comment(s): Gummies and occasionally smokes marijuana - Past Family History Mother Family Medical History: Cancer Father Family Medical History: Cancer Additional Family Medical History / Comment(s): Lung cancer/smoker/chemical exposure. Medications and Allergies Home Medications Medication Instructions Recorded Confirmed Type Omeprazole [PriLOSEC] 20 mg PO QAM 01/21/18 07/08/24 History Apixaban [Eliquis] 5 mg PO BID 10/02/22 07/08/24 History Cyanocobalamin (Vitamin B-12) 1,000 mcg PO HS 10/02/22 07/08/24 History [Vitamin B-12] Rosuvastatin [Crestor] 10 mg PO HS 10/02/22 07/08/24 History Sertraline [Zoloft] 100 mg PO HS 10/02/22 07/08/24 History Folic Acid 0.4 mg PO DAILY 07/01/24 07/08/24 History Losartan [Cozaar] 25 mg PO DAILY #90 tab 07/06/24 07/08/24 Rx Thiamine [Vitamin B-1] 100 mg PO DAILY 07/08/24 07/08/24 History amLODIPine [Norvasc] 5 mg PO BID 07/08/24 07/08/24 History Allergies Allergy/AdvReac Type Severity Reaction Status Date / Time No Known Allergies Allergy Verified 07/08/24 16:35 Physical Exam Vitals: Vital Signs Temp Pulse Pulse Pulse Resp BP BP 07/09/24 11:41 98.1 F 76 16 120/85 07/09/24 11:20 94 20 134/90 07/09/24 09:05 126 H 20 136/91 07/09/24 06:03 96 18 140/94 07/09/24 03:05 106 H 18 130/95 07/09/24 01:00 115 H 20 136/102 07/08/24 22:03 122 H 18 122/84 07/08/24 20:08 165 H 18 119/102 07/08/24 17:41 147 H 18 98/85 07/08/24 15:32 122 H 20 149/97 07/08/24 14:47 137 H 20 98/55 07/08/24 13:50 174 H 07/08/24 13:29 99.0 F 75 20 141/91 Pulse Ox 07/09/24 11:41 95 07/09/24 11:20 96 07/09/24 09:05 96 07/09/24 06:03 96 07/09/24 03:05 98 07/09/24 01:00 07/08/24 22:03 96 07/08/24 20:08 97 07/08/24 17:41 96 07/08/24 15:32 97 07/08/24 14:47 98 07/08/24 13:50 07/08/24 13:29 98 Intake and Output 07/08/24 07/09/24 07/09/24 22:59 06:59 14:59 Other: Weight 94.347 kg Results 07/09/24 06:46 07/09/24 06:46 Cardiac Enzymes 07/08/24 07/08/24 07/08/24 Range/Units 14:10 14:10 17:02 AST 38 H (14-36) U/L Troponin I 0.018 0.016 (0.000-0.034) ng/mL 07/08/24 Range/Units 19:02 AST (14-36) U/L Troponin I 0.019 (0.000-0.034) ng/mL Coagulation 07/08/24 Range/Units 14:10 PT 12.0 (10.0-12.5) sec APTT 27.8 (22.0-30.0) sec CBC 07/08/24 07/09/24 Range/Units 14:10 06:46 WBC 14.2 H 8.1 (3.8-10.6) k/uL RBC 5.11 4.57 (3.80-5.40) m/uL Hgb 17.1 H 14.8 (11.4-16.0) gm/dL Hct 51.3 H 47.0 H (34.0-46.0) % Plt Count 286 239 (150-450) k/uL Comprehensive Metabolic Panel 07/08/24 07/09/24 Range/Units 14:10 06:46 Sodium 134 L 140 (137-145) mmol/L Potassium 3.5 3.5 (3.5-5.1) mmol/L Chloride 97 L 102 (98-107) mmol/L Carbon Dioxide 25 31 H (22-30) mmol/L BUN 8 7 (7-17) mg/dL Creatinine 0.75 0.65 (0.52-1.04) mg/dL Glucose 101 H 103 H (74-99) mg/dL Calcium 9.3 9.0 (8.4-10.2) mg/dL AST 38 H (14-36) U/L ALT 15 (4-34) U/L Alkaline Phosphatase 128 H (38-126) U/L Total Protein 7.7 (6.3-8.2) g/dL Albumin 4.5 (3.5-5.0) g/dL Current Medications Generic Name Dose Route Start Last Admin Trade Name Freq PRN Reason Stop Dose Admin Apixaban 5 mg 07/08/24 21:00 07/09/24 09:07 Apixaban 5 Mg Tab PO 5 mg BID [facility] Administration Protocol Aspirin 81 mg 07/09/24 09:00 07/09/24 09:07 Aspirin 81 Mg PO Not Given DAILY [facility] Atorvastatin Calcium 20 mg 07/09/24 09:00 07/09/24 09:07 Atorvastatin 20 Mg Tab PO 20 mg DAILY RAMÓN Administration Dronedarone 400 mg 07/09/24 09:45 07/09/24 09:46 Dronedarone 400 Mg Tab PO 400 mg AC-BID RAMÓN Administration Metoprolol Tartrate 100 mg 07/09/24 09:30 07/09/24 09:36 Metoprolol Tartrate 50 Mg Tab PO 100 mg BID RAMÓN Administration Nitroglycerin 0.4 mg 07/08/24 16:02 Nitroglycerin Sl Tabs 0.4 Mg Tab SUBLINGUAL Q5M PRN Chest Pain Sertraline HCl 100 mg 07/08/24 21:00 07/08/24 20:40 Sertraline 100 Mg Tab PO 100 mg HS RAMÓN Administration Intake and Output 07/08/24 07/09/24 07/09/24 22:59 06:59 14:59 Other: Weight 94.347 kg Patient Weight 07/10/24 06:59 Weight 94.347 kg 07/09/24 06:46 07/09/24 06:46
--- NOTE | 2024-07-09 13:59 | P.PN ---
Subjective Progress Note Date: 07/09/24 Hospital Course: 53-year-old female with history of atrial fibrillation with recent cardioversi on, hypertension, dyslipidemia, depression presenting from cardiology office with elevated heart rate. In the ED, temperature was 99, pulse 174, respiratory rate 20, blood pressure 141/91, saturating at 98% on room air. Chest x-ray independently interpreted, does not show any acute opacities. EKG independently interpreted, shows atrial fibrillation with RVR, and inferior lateral ST depression. WBC 14.2, hemoglobin 17.1, sodium 134, bicarb 25, creatinine 0.75, magnesium 0.9, potassium 3.5, troponin 0.018. Patient started on amiodarone drip per cardiology, also given IV magnesium. Patient being admitted for A-fib with RVR. Subjective: Patient seen and examined at bedside. No acute events overnight. Pertinent positives and negatives as discussed above, a complete review of systems was performed and all other systems are negative. Vitals Signs Reviewed. General: Nontoxic, no distress, appears at stated age Derm: Warm, dry Head: Atraumatic, normocephalic, symmetric Eyes: EOMI, no lid lag, anicteric sclera Mouth: No lip lesion, mucus membranes moist Cardiovascular: S1S2 reg, no murmur Lungs: CTA bilateral, no rhonchi, no rales, no accessory muscle use Abdominal: Soft, nontender to palpation, no guarding, no appreciable organomegaly Ext: No gross muscle atrophy, no edema, no contractures Neuro: CN II-XI grossly intact, no focal neuro deficits Psych: Alert, oriented, appropriate affect Data Reviewed Today: Pertinent Labs: WBC 8.1, creatinine 0.65, magnesium 2.5 Imaging: EKG independently interpreted from this morning, still A-fib with RVR, ST depressions and inferior and lateral leads Assessment and Plan: Atrial fibrillation with RVR Hypomagnesemia, resolved Leukocytosis, likely reactive, resolved -Cardiology note reviewed, amiodarone drip discontinued, patient started on dronedarone 400 twice daily, metoprolol 100 twice daily -Continue telemetry monitoring -Continue Eliquis 5 twice daily History of hypertension -Hold current antihypertensives as patient is slightly hypotensive -Cardiology recommending restarting losartan tomorrow Dyslipidemia -Continue rosuvastatin 10 mg daily Depression -Continue sertraline 100 mg nightly DVT ppx: Eliquis Code status: Full code Anticipated discharge place: Pending clinical course Anticipated discharge time: Pending clinical course Objective - Vital Signs Vital signs: Vital Signs Temp 98.1 F 07/09/24 11:41 Pulse 76 07/09/24 11:41 Resp 16 07/09/24 11:41 BP 120/85 07/09/24 11:41 Pulse Ox 95 07/09/24 11:41 FiO2 Intake & Output 07/08/24 07/09/24 07/09/24 18:59 06:59 18:59 Weight 94.347 kg 94.347 kg - Labs CBC & Chem 7: 07/09/24 06:46 07/09/24 06:46 Labs: Abnormal Lab Results - Last 24 Hours (Table) 07/08/24 07/08/24 07/09/24 Range/Units 14:10 14:10 06:46 WBC 14.2 H (3.8-10.6) k/uL Hgb 17.1 H (11.4-16.0) gm/dL Hct 51.3 H (34.0-46.0) % MCV 100.4 H (80.0-100.0) fL Neutrophils # 11.1 H (1.3-7.7) k/uL Sodium 134 L (137-145) mmol/L Chloride 97 L (98-107) mmol/L Carbon Dioxide 31 H (22-30) mmol/L Glucose 101 H 103 H (74-99) mg/dL Magnesium 0.9 L* 2.5 H (1.6-2.3) mg/dL AST 38 H (14-36) U/L Alkaline Phosphatase 128 H (38-126) U/L 07/09/24 Range/Units 06:46 WBC (3.8-10.6) k/uL Hgb (11.4-16.0) gm/dL Hct 47.0 H (34.0-46.0) % MCV 102.9 H (80.0-100.0) fL Neutrophils # (1.3-7.7) k/uL Sodium (137-145) mmol/L Chloride (98-107) mmol/L Carbon Dioxide (22-30) mmol/L Glucose (74-99) mg/dL Magnesium (1.6-2.3) mg/dL AST (14-36) U/L Alkaline Phosphatase (38-126) U/L
[2024-07-09 14:14] LABS: Chol/HDL Ratio 3.25 Ratio
--- NOTE | 2024-07-10 11:29 | P.PN ---
Subjective Progress Note Date: 07/10/24 This is Luis F Michelle NP, I'm dictating on behalf of Dr. Mera's H&P and A&P. Patient was interviewed and examined. Patient is a pleasant 53-year-old female who presented to the hospital with atrial fibrillation with rapid ventricular response and hypomagnesemia. Patient reports that she is feeling great today. She denies chest pain, heart palpitations, dizziness, lightheadedness. Patient remains in atrial fibrillation with controlled ventricular rate. She is responding well to medications. Patient was started on dronedarone and metoprolol yesterday, and is tolerating these well. Our plan is to give the patient another day on the dronedarone and metoprolol to see if she spontaneously converts to normal sinus rhythm. If not consider cardioversion tomorrow. GENERAL: Well-appearing, well-nourished and in no acute distress. NECK: Supple without JVD or thyromegaly. LUNGS: Breath sounds clear to auscultation bilaterally. Respiration equal and unlabored. No wheezes, rales or rhonchi. HEART: Regular rate and rhythm without murmurs, rubs or gallops. S1 and S2 heard. EXTREMITIES: Normal range of motion, no edema. No clubbing or cyanosis. Peripheral pulses intact and strong. VITALS: Temp 98.8, pulse rate 72, respirations 17, blood pressure 166/97, O2 saturation 98% on room air TELEMETRY: Atrial fibrillation with controlled ventricular response LABS: White count 8.1, hemoglobin 14.8, platelets 239, sodium 140, potassium 3.5, BUN 7, creatinine 0.65, magnesium 2.1, triglycerides 176, cholesterol 149, LDL 68, HDL 45.8 IMPRESSION: 1. Atrial fibrillation with rapid ventricular response 2. Failed previous cardioversions x 2 3. Hypomagnesemia 4. Hypertension 5. Dyslipidemia PLAN: Continue current medications as prescribed. N.p.o. after midnight for possible cardioversion tomorrow. Recommend patient pursue ablation electively. Further recommendations based on patient's clinical course. Objective - Vital Signs Vital signs: Vital Signs Temp 98.8 F 07/10/24 07:46 Pulse 72 07/10/24 07:46 Resp 17 07/10/24 07:46 BP 166/97 07/10/24 07:46 Pulse Ox 98 07/10/24 07:46 FiO2 Intake & Output 07/09/24 07/10/24 07/10/24 18:59 06:59 18:59 Intake Total 236 20 118 Balance 236 20 118 Weight 94.347 kg 93.9 kg Intake: IV 20 Invasive Line 1 20 Oral 236 118 Other: Voiding Method Toilet Toilet Toilet # Voids 3 1 # Bowel Movements 2 2 - Labs CBC & Chem 7: 07/09/24 06:46 07/09/24 06:46 Labs: Abnormal Lab Results - Last 24 Hours (Table) 07/09/24 Range/Units 06:46 Triglycerides 176.00 H (0.00-149.00) mg/dL
--- NOTE | 2024-07-10 12:54 | P.PN ---
Subjective Progress Note Date: 07/10/24 Hospital Course: 53-year-old female with history of atrial fibrillation with recent cardioversi on, hypertension, dyslipidemia, depression presenting from cardiology office with elevated heart rate. In the ED, temperature was 99, pulse 174, respiratory rate 20, blood pressure 141/91, saturating at 98% on room air. Chest x-ray independently interpreted, does not show any acute opacities. EKG independently interpreted, shows atrial fibrillation with RVR, and inferior lateral ST depression. WBC 14.2, hemoglobin 17.1, sodium 134, bicarb 25, creatinine 0.75, magnesium 0.9, potassium 3.5, troponin 0.018. Patient started on amiodarone drip per cardiology, also given IV magnesium. Patient admitted for A-fib with RVR. Now converted to oral antiarrhythmics. Pending cardioversion tomorrow. Subjective: Patient seen and examined at bedside. No acute events overnight. Pertinent positives and negatives as discussed above, a complete review of systems was performed and all other systems are negative. Vitals Signs Reviewed. General: Nontoxic, no distress, appears at stated age Derm: Warm, dry Head: Atraumatic, normocephalic, symmetric Eyes: EOMI, no lid lag, anicteric sclera Mouth: No lip lesion, mucus membranes moist Cardiovascular: S1S2 reg, no murmur Lungs: CTA bilateral, no rhonchi, no rales, no accessory muscle use Abdominal: Soft, nontender to palpation, no guarding, no appreciable organomegaly Ext: No gross muscle atrophy, no edema, no contractures Neuro: CN II-XI grossly intact, no focal neuro deficits Psych: Alert, oriented, appropriate affect Data Reviewed Today: Pertinent Labs: Magnesium 2.1, total cholesterol 149, LDL 68 Imaging: No new imaging Assessment and Plan: Atrial fibrillation with RVR, now rate controlled Hypomagnesemia, resolved Leukocytosis, likely reactive, resolved -Cardiology note reviewed, continue on dronedarone 400 twice daily, metoprolol 100 twice daily, cardioversion tomorrow -Continue telemetry monitoring -Continue Eliquis 5 twice daily History of hypertension -Restarted home losartan 25 daily, continue to hold amlodipine Dyslipidemia -Continue rosuvastatin 10 mg daily Depression -Continue sertraline 100 mg nightly DVT ppx: Eliquis Code status: Full code Anticipated discharge place: Pending clinical course Anticipated discharge time: Pending clinical course Objective - Vital Signs Vital signs: Vital Signs Temp 98.5 F 07/10/24 12:00 Pulse 85 07/10/24 12:00 Resp 16 07/10/24 12:00 BP 129/83 07/10/24 12:00 Pulse Ox 98 07/10/24 07:46 FiO2 Intake & Output 07/09/24 07/10/24 07/10/24 18:59 06:59 18:59 Intake Total 236 20 118 Balance 236 20 118 Weight 94.347 kg 93.9 kg Intake: IV 20 Invasive Line 1 20 Oral 236 118 Other: Voiding Method Toilet Toilet Toilet # Voids 3 1 # Bowel Movements 2 2 - Labs CBC & Chem 7: 07/09/24 06:46 07/09/24 06:46 Labs: Abnormal Lab Results - Last 24 Hours (Table) 07/09/24 Range/Units 06:46 Triglycerides 176.00 H (0.00-149.00) mg/dL
[2024-07-10] MEDS: LOSARTAN 25 MG TAB PO SCH (14:54)
[2024-07-11 07:58] VITALS: RESP 16; TEMP 97.9
[2024-07-11 08:48] LABS: Basophils # (A) 0.1 k/uL (0-0.2); Basophils % (A) 1 %; Eosinophils # (A) 0.2 k/uL (0-0.7); Eosinophils % (A) 2 %; HCT 46.8 % (34.0-46.0); HGB 14.8 gm/dL (11.4-16.0); Lymphocytes # (A) 2.4 k/uL (1.0-4.8); Lymphocytes % (A) 32 %; MCH 32.5 pg (25.0-35.0); MCHC 31.6 g/dL (31.0-37.0); Macrocytosis Slight; Mean Platelet Volume 8.3; Monocytes # (A) 0.3 k/uL (0-1.0); Monocytes % (A) 4 %; Neutrophils # (A) 4.4 k/uL (1.3-7.7); Neutrophils % (A) 59 %; Platelet Count 253 k/uL (150-450); RBC 4.54 m/uL (3.80-5.40); RDW 12.5 % (11.5-15.5); WBC 7.5 k/uL (3.8-10.6)
[2024-07-11 09:01] LABS: African American GFR (CKD) >90 (>60 ml/min/1.73 sqM); Anion Gap 5 mmol/L; Blood Urea Nitrogen 7 mg/dL (7-17); Calcium 9.5 mg/dL (8.4-10.2); Carbon Dioxide 34 mmol/L (22-30); Chloride 102 mmol/L (98-107); Glucose 84 mg/dL (74-99); Magnesium 1.9 mg/dL (1.6-2.3); Non-African American GFR(CKD) >90 (>60 ml/min/1.73 sqM); Potassium 4.2 mmol/L (3.5-5.1); Sodium 141 mmol/L (137-145)
[2024-07-11 11:45] VITALS: BP 146/94; PULSE 73
--- NOTE | 2024-07-11 11:59 | P.PN ---
Subjective HISTORY OF PRESENT ILLNESS: 53-year-old female who follows in the office with Dr. Cao. Patient examined this morning at the bedside. Patient currently denies chest pain or pressure. She denies shortness of breath. Denies palpitations. Denies dizziness or lightheadedness. She remains in atrial fibrillation with controlled ventricular rate. PHYSICAL EXAM: VITAL SIGNS: Reviewed. GENERAL: Well-developed in no acute distress. NECK: Supple. No JVD or thyromegaly LUNGS: Respirations even and unlabored. Lungs essentially clear to auscultation bilaterally. HEART: Regular rate and rhythm. S1 and S2 heard. EXTREMITIES: Normal range of motion. No clubbing or cyanosis. Peripheral pulses intact. No lower extremity edema ASSESSMENT: Persistent atrial fibrillation, currently rate controlled Recent unsuccessful KIESHA/cardioversion, patient converted to sinus mechanism and then went back into atrial fibrillation, 07/06/2024 Hypomagnesemia Hypertension Hyperlipidemia PLAN: Plan was for cardioversion today. However, per OR charge nurse Marisela, anesthesia is short staffed and unable to accommodate patient this morning Continue current cardiac medications Patient may be discharged home today from a cardiac standpoint Patient will follow-up postdischarge in the office with Dr. Cao and will be scheduled for outpatient cardioversion Nurse practitioner note has been reviewed by physician. Signing provider agrees with the documented findings, assessment, and plan of care documented by [employer] as a scribe. Objective - Vital Signs Vital signs: Vital Signs Temp 97.9 F 07/11/24 07:56 Pulse 73 07/11/24 11:44 Resp 16 07/11/24 11:44 BP 146/94 07/11/24 11:44 Pulse Ox 98 07/11/24 11:44 FiO2 Intake & Output 07/10/24 07/11/24 07/11/24 18:59 06:59 18:59 Intake Total 354 Balance 354 Weight 94.2 kg Intake: Oral 354 Other: Voiding Method Toilet Toilet Toilet # Voids 2 1 - Labs CBC & Chem 7: 07/11/24 07:50 07/11/24 07:50 Labs: Abnormal Lab Results - Last 24 Hours (Table) 07/11/24 07/11/24 Range/Units 07:50 07:50 Hct 46.8 H (34.0-46.0) % MCV 103.0 H (80.0-100.0) fL Carbon Dioxide 34 H (22-30) mmol/L
--- NOTE | 2024-07-11 14:15 | P.DS ---
Providers Date of admission: 07/08/24 16:16 Expected date of discharge: 07/11/24 Attending physician: Gregorio Buck Consults: 07/08/24 16:02 Consult Physician Urgent Consulting Provider: Patrick Cao Consult Reason/Comments: A-fib with rapid ventricular response Do you want consulting provider notified?: Yes Primary care physician: Gene Love Hospital Course: Discharge Diagnosis: Atrial fibrillation with RVR Hypomagnesemia Leukocytosis, reactive History of hypertension Dyslipidemia Depression Hospital Course: 53-year-old female with history of atrial fibrillation with recent cardioversion, hypertension, dyslipidemia, depression presenting from cardiology office with elevated heart rate. In the ED, temperature was 99, pulse 174, respiratory rate 20, blood pressure 141/91, saturating at 98% on room air. Chest x-ray independently interpreted, does not show any acute opacities. EKG independently interpreted, shows atrial fibrillation with RVR, and inferior lateral ST depression. WBC 14.2, hemoglobin 17.1, sodium 134, bicarb 25, creatinine 0.75, magnesium 0.9, potassium 3.5, troponin 0.018. Patient started on amiodarone drip per cardiology, also given IV magnesium. Patient admitted for A-fib with RVR. Now converted to oral antiarrhythmics. Outpatient cardioversion. Patient remains rate controlled. Follow-up outpatient with cardiology. Patient seen and examined at bedside. Vital signs reviewed and stable. General: Nontoxic, no distress, appears at stated age Derm: Warm, dry Head: Atraumatic, normocephalic, symmetric Eyes: EOMI, no lid lag, anicteric sclera Mouth: No lip lesion, mucus membranes moist Cardiovascular: S1S2 irregular, no murmur Lungs: CTA bilateral, no rhonchi, no rales, no accessory muscle use Abdominal: Soft, nontender to palpation, no guarding, no appreciable organomegaly Ext: No gross muscle atrophy, no edema, no contractures Neuro: CN II-XI grossly intact, no focal neuro deficits Psych: Alert, oriented, appropriate affect A total of 36 minutes of time were spent preparing this complex discharge summary. Patient was discharged on 07/11/2024 at 1207. Plan - Discharge Summary Discharge Rx Participant: No New Discharge Prescriptions: New Dronedarone [Multaq] 400 mg PO AC-BID #90 tab Metoprolol Tartrate [Lopressor] 100 mg PO BID #90 tab Continue Omeprazole [PriLOSEC] 20 mg PO QAM Sertraline [Zoloft] 100 mg PO HS Rosuvastatin [Crestor] 10 mg PO HS Cyanocobalamin (Vitamin B-12) [Vitamin B-12] 1,000 mcg PO HS Folic Acid 0.4 mg PO DAILY Thiamine [Vitamin B-1] 100 mg PO DAILY Losartan [Cozaar] 25 mg PO DAILY #90 tab Apixaban [Eliquis] 5 mg PO BID amLODIPine [Norvasc] 5 mg PO BID Discharge Medication List Omeprazole [PriLOSEC] 20 mg PO QAM 01/21/18 [History] Apixaban [Eliquis] 5 mg PO BID 10/02/22 [History] Cyanocobalamin (Vitamin B-12) [Vitamin B-12] 1,000 mcg PO HS 10/02/22 [History] Rosuvastatin [Crestor] 10 mg PO HS 10/02/22 [History] Sertraline [Zoloft] 100 mg PO HS 10/02/22 [History] Folic Acid 0.4 mg PO DAILY 07/01/24 [History] Thiamine [Vitamin B-1] 100 mg PO DAILY 07/08/24 [History] amLODIPine [Norvasc] 5 mg PO BID 07/08/24 [History] Dronedarone [Multaq] 400 mg PO AC-BID #90 tab 07/11/24 [Rx] Losartan [Cozaar] 25 mg PO DAILY #90 tab 07/11/24 [Rx] Metoprolol Tartrate [Lopressor] 100 mg PO BID #90 tab 07/11/24 [Rx] Follow up Appointment(s)/Referral(s): Gene Love MD [Primary Care Provider] - 07/13/24 10:30 am Patrick Cao MD [STAFF PHYSICIAN] - 07/15/24 2:45 pm Patient Instructions/Handouts: A-fib (Atrial Fibrillation) (DC) Activity/Diet/Wound Care/Special Instructions: Please see your PCP and cardiology. Discharge Disposition: HOME SELF-CARE
== END 2024-07-11 13:52 | disposition home or self-care (01) | DRG 310 ==
LOC: EC 13:27 → 3SCARD 16:16
PROVIDERS: ADMIT Student in an Organized Health Care Education/Training Program; ATTEND Student in an Organized Health Care Education/Training Program
DX: I48.19 Other persistent atrial fibrillation (principal); E83.42 Hypomagnesemia; D72.829 Elevated white blood cell count, unspecified; I10 Essential (primary) hypertension; E78.5 Hyperlipidemia, unspecified; Z87.19 Personal history of other diseases of the digestive system; F32.A Depression, unspecified; F41.9 Anxiety disorder, unspecified; Z79.01 Long term (current) use of anticoagulants; Z79.899 Other long term (current) drug therapy; Z86.0100 Personal history of colon polyps, unspecified; Z87.891 Personal history of nicotine dependence; Z98.51 Tubal ligation status; D64.9 Anemia, unspecified
CPT/HCPCS: 36415; 71046; 80048; 80053; 80061; 83735; 84484; 85025; 85610; 85730; 93005; 96365; 96366; 96367; 96375; 99291

== ENCOUNTER 2024-07-19 08:38 | Day surgery (SDC) | payer BC ==
[2024-07-19 09:14] VITALS: TEMP 96.6
[2024-07-19] MEDS: LIDOCAINE 1% (10MG/ML) FOR IV START INTRADERMA STA (09:16)
[2024-07-19] MEDS: SODIUM CHLORIDE 0.9% 500 ML 500 ML IV ONE (09:16)
[2024-07-19] MEDS: SODIUM CHLORIDE 0.9% 1,000 ML IV SCH (09:16)
[2024-07-19] MEDS: ONDANSETRON 4 MG/2 ML VIAL IVP STA (09:32)
[2024-07-19] MEDS ORDERED: PROPOFOL 10 MG/ML 20 ML VIAL IV ONE (09:51)
[2024-07-19] MEDS ORDERED: LIDOCAINE 1% INJ 10MG/ML (20 ML MDV) ONE (09:51)
[2024-07-19 11:03] VITALS: RESP 18
[2024-07-19 11:50] VITALS: BP 125/76; PULSE 53
--- NOTE | 2024-07-19 11:59 | PCN ---
PROCEDURE NOTE PROCEDURE: Cardioversion. INDICATION: Persistent atrial fibrillation. PROCEDURE NOTE: After obtaining informed consent, electrical cardioversion was performed using 150 joules of synchronized DC current. She is adequately anticoagulated with Eliquis and is anesthetized by the grounds cleaner. She converted to sinus rhythm following a single shock and was in sinus rhythm with sinus bradycardia with a heart rate of 50 beats per minute. The patient is on metoprolol 100 mg b.i.d. I am going to decrease the dose to 25 b.i.d., and she will be followed up in my office in a week's time. [id number] / IJN: [id number] /
== END 2024-07-19 12:02 | disposition home or self-care (01) ==
LOC: OR 08:38
PROVIDERS: ATTEND Internal Medicine Cardiovascular Disease
DX: I48.0 Paroxysmal atrial fibrillation (principal); I10 Essential (primary) hypertension; E78.5 Hyperlipidemia, unspecified; F17.210 Nicotine dependence, cigarettes, uncomplicated; Z79.01 Long term (current) use of anticoagulants; Z79.899 Other long term (current) drug therapy; Z82.49 Family history of ischemic heart disease and other diseases of the circulatory system
CPT/HCPCS: 81025; 92960; J2405; J2003; J2704